=== PATIENT | female | born 1945 | race African-American/Black ===

== ENCOUNTER 2019-02-21 18:49 | Inpatient (IN) | payer MEDICARE, MEDICAID ==
[~2019-02-21] VITALS: Ht 165.1 cm; Wt 111.4 kg
[2019-02-21] MEDS ORDERED: METHYLPREDNISOLONE SOD SUCC 125 MG/2 ML VIAL IV STA (19:16)
[2019-02-21] MEDS ORDERED: ALBUTEROL (0.083%) 2.5MG/3ML NEB HHN STA (19:16)
[2019-02-21] MEDS ORDERED: IPRATROPIUM BROMIDE (0.02%) 0.5MG/2.5ML NEB HHN STA (19:16)
[2019-02-21] MEDS ORDERED: LORAZEPAM 0.5MG TABLET PO ONE (19:30)
[2019-02-21 20:28] LABS: BASOPHILS % 0.4 % (0.0-2.0); EOSINOPHILS % 0.7 % (0.0-5.0); HEMATOCRIT. 26.1 % (36.0-48.0); LYMPHOCYTES % 9.3 % (20.0-50.0); MEAN CORPUSCULAR HEMOGLOBIN 24.8 pg (28.0-32.0); MEAN CORPUSCULAR VOLUME 81.6 fL (81.0-99.0); MONOCYTES % 9.1 % (2.0-8.0); NEUTROPHILS % 80.5 % (40.0-76.0); RED CELL DISTRIBUTION WIDTH 20.3 % (11.6-14.6)
[2019-02-21 20:35] LABS: CHLORIDE 109 mEq/L (98-107)
[2019-02-21] MEDS ORDERED: HYDROCODONE/ACETAMINOPHEN 5/325MG TABLET PO STA (20:53)
[2019-02-21] MEDS ORDERED: ASPIRIN 81MG TABLET PO ONE (21:00)
[2019-02-21] MEDS ORDERED: NITROGLYCERIN 0.4MG TABLET SL SL PRN (21:00)
[2019-02-21] MEDS ORDERED: FUROSEMIDE 40MG/4ML VIAL IV ONE (21:00)
[2019-02-21] MEDS ORDERED: ONDANSETRON HCL 4MG/2ML INJ IV STA (22:26)
[2019-02-21] MEDS ORDERED: MORPHINE SULFATE 4 MG/ML CPJ (NOT FOR IM USE) IV STA (22:26)
[2019-02-21 22:34] LABS: MEAN PLATELET VOLUME 8.6 fl (7.4-10.4); PLATELET 351 x1000/uL (130-400)
[2019-02-21 23:30] VITALS: BP 140/46
[2019-02-22 04:00] VITALS: BP 132/48
[2019-02-22] MEDS ORDERED: DEXTROSE 50% WATER 50ML SYRINGE IV PRN ×2 (05:30)
[2019-02-22] MEDS: BLOOD SUGAR DIAGNOSTIC STRIP TEST SCH ×4 (07:52→21:00)
[2019-02-22 08:00] VITALS: BP 167/68
[2019-02-22] MEDS: INSULIN LISPRO 100 UNITS/ML SUBCUT SCH ×4 (08:22→23:23)
[2019-02-22] MEDS ORDERED: FUROSEMIDE 40MG/4ML VIAL IVP SCH (09:00)
[2019-02-22] MEDS ORDERED: NON FORMULARY PATIENT HOME MED XX SCH ×2 (09:15→09:30)
[2019-02-22] MEDS ORDERED: DOCUSATE SODIUM 250MG CAPSULE PO SCH (09:30)
[2019-02-22] MEDS: IPRATROPIUM/ALBUTEROL 0.5-3(2.5)MG/3ML NEB HHN SCH ×4 (09:54→20:06)
[2019-02-22] MEDS ORDERED: CARVEDILOL 12.5MG TABLET PO SCH ×2 (10:00)
[2019-02-22] MEDS ORDERED: LIDOCAINE HCL/PF 1% 2ML VIAL ONE (10:43)
[2019-02-22] MEDS: FOLIC ACID/VITAMIN B COMP W-C TABLET PO SCH (11:09)
[2019-02-22 11:56] LABS: HEMATOCRIT. 26.3 % (36.0-48.0); HEMOGLOBIN. 7.9 g/dL (12.0-16.0); MEAN CORPUSCULAR HEMOGLOBIN 24.9 pg (28.0-32.0); MEAN CORPUSCULAR VOLUME 82.5 fL (81.0-99.0); MEAN PLATELET VOLUME 8.2 fl (7.4-10.4); PLATELET 302 x1000/uL (130-400); RED BLOOD CELL COUNT 3.18 mill/uL (4.2-5.4); RED CELL DISTRIBUTION WIDTH 20.5 % (11.6-14.6)
[2019-02-22 12:00] VITALS: BP 105/46
[2019-02-22 12:25] LABS: CHLORIDE 106 mEq/L (98-107)
[2019-02-22 12:31] LABS: LDL CHOLESTEROL 48 mg/dL (5-100)
[2019-02-22 12:32] LABS: TOTAL IRON BINDING CAPACITY 371 ug/dL (250-450)
[2019-02-22 12:33] LABS: HDL CHOLESTEROL 52 mg/dL (40-59)
[2019-02-22 12:34] LABS: T4 FREE 1.34 ng/dL (0.76-1.46)
[2019-02-22 12:43] LABS: BG BASE EXCESS -4.3 mmol/L (-2.0-2.0); BG CARBOXYHEMOGLOBIN 1.4 % (0.5-1.5); BG DEOXYHEMOGLOBIN 13.4 % (0.0-5.0); BG FRACTION INSPIRED OXYGEN 32; BG HCO3 ACT 21.6 mmol/L (22.0-26.0); BG METHEMOGLOBIN 0.1 % (0.0-1.5); BG OXYGEN SATURATION 86.4 % (92.0-98.5); BG OXYHEMOGLOBIN 85.1 % (94.0-97.0); BG PCO2 43.2 mmHg (35.0-45.0); BG PH 7.316 (7.350-7.450); BG PO2 56.3 mmHg (75.0-100.0); BG SAMPLE SITE RIGHT BRACHIAL; BG VENT MODE NASAL CANNULA
[2019-02-22] MEDS: FERROUS SULFATE 325MG TABLET PO SCH ×2 (12:50→18:03)
[2019-02-22] MEDS: HYDROCODONE/ACETAMINOPHEN 5/325MG TABLET PO PRN ×2 (12:51→18:04)
[2019-02-22 13:02] LABS: PLATELET ESTIMATE NORMAL
[2019-02-22] MEDS ORDERED: SODIUM POLYSTYRENE SULFONATE 15 G/60 ML BOT PO NR (14:00)
[2019-02-22 16:00] VITALS: BP 117/51
[2019-02-22] MEDS ORDERED: LEVO50TA8 PO (16:24)
[2019-02-22] MEDS ORDERED: AMBR10TA3 PO (16:24)
[2019-02-22] MEDS ORDERED: ATOR40TA70 PO (16:24)
[2019-02-22] MEDS ORDERED: LISI10TA5 PO (16:24)
[2019-02-22] MEDS ORDERED: FERR325T6 PO (16:24)
[2019-02-22] MEDS ORDERED: ALPR0.5T PO (16:24)
[2019-02-22] MEDS ORDERED: LEVO50TA PO (16:24)
[2019-02-22] MEDS ORDERED: SILD20TA PO (16:24)
[2019-02-22] MEDS ORDERED: APIX5TAB PO (16:24)
[2019-02-22] MEDS ORDERED: FURO80TA3 PO (16:24)
[2019-02-22] MEDS: APIXABAN 5 MG TABLET PO SCH (18:03)
[2019-02-22] MEDS: ALPRAZOLAM 0.25 MG TABLET PO PRN (18:55)
[2019-02-22 20:00] VITALS: BP 107/54
[2019-02-22] MEDS: BUDESONIDE 0.5MG/2ML NEB HHN SCH (20:06)
[2019-02-22] MEDS: FUROSEMIDE 40MG TABLET PO SCH (23:21)
[2019-02-22] MEDS: CARVEDILOL 12.5MG TABLET PO SCH (23:22)
[2019-02-22] MEDS: INSULIN GLARGINE UD 100 UNITS/ML SYR SUBCUT SCH (23:23)
[2019-02-23] VITALS (8 sets, daily range): BP systolic 102–146; BP diastolic 46–67
[2019-02-23] MEDS: IPRATROPIUM/ALBUTEROL 0.5-3(2.5)MG/3ML NEB HHN SCH ×6 (00:32→21:02)
[2019-02-23] MEDS: ALPRAZOLAM 0.25 MG TABLET PO PRN (01:42)
[2019-02-23] MEDS: LEVOTHYROXINE SODIUM 50MCG TABLET PO SCH (07:04)
[2019-02-23] MEDS: BLOOD SUGAR DIAGNOSTIC STRIP TEST SCH ×4 (07:04→21:00)
[2019-02-23] MEDS: APIXABAN 5 MG TABLET PO SCH ×2 (07:04→17:24)
[2019-02-23] MEDS: INSULIN LISPRO 100 UNITS/ML SUBCUT SCH ×4 (07:50→21:00)
[2019-02-23 08:13] LABS: BASOPHILS % 0.3 % (0.0-2.0); EOSINOPHILS % 0.1 % (0.0-5.0); LYMPHOCYTES % 13.8 % (20.0-50.0); MEAN CORPUSCULAR HEMOGLOBIN 24.8 pg (28.0-32.0); MEAN CORPUSCULAR VOLUME 81.1 fL (81.0-99.0); MEAN PLATELET VOLUME 8.3 fl (7.4-10.4); MONOCYTES % 10.9 % (2.0-8.0); NEUTROPHILS % 74.9 % (40.0-76.0); PLATELET 276 x1000/uL (130-400)
[2019-02-23] MEDS: FOLIC ACID/VITAMIN B COMP W-C TABLET PO SCH (08:15)
[2019-02-23] MEDS: FUROSEMIDE 40MG TABLET PO SCH ×2 (08:15→22:29)
[2019-02-23] MEDS: CARVEDILOL 12.5MG TABLET PO SCH ×2 (08:16→22:28)
[2019-02-23] MEDS: DOCUSATE SODIUM 250MG CAPSULE PO SCH (08:16)
[2019-02-23] MEDS: FERROUS SULFATE 325MG TABLET PO SCH ×3 (08:16→17:24)
[2019-02-23 08:23] LABS: CHLORIDE 107 mEq/L (98-107)
[2019-02-23 08:27] LABS: HEMOGLOBIN. 6.7 g/dL (12.0-16.0)
[2019-02-23 08:28] LABS: HEMATOCRIT. 21.9 % (36.0-48.0)
[2019-02-23] MEDS: BUDESONIDE 0.5MG/2ML NEB HHN SCH ×2 (08:52→21:02)
[2019-02-23] MEDS: HYDROCODONE/ACETAMINOPHEN 5/325MG TABLET PO PRN ×2 (11:54→19:59)
[2019-02-23] MEDS ORDERED: COLCHICINE 0.6MG TABLET PO SCH (12:45)
[2019-02-23] MEDS ORDERED: ONDANSETRON HCL 4MG/2ML INJ IV PRN (13:00)
[2019-02-23] MEDS ORDERED: ACETYLCYSTEINE 200MG/ML 20% VIAL 4ML PO ONE (13:00)
[2019-02-23] MEDS: ALLOPURINOL 100 MG TABLET PO SCH (13:15)
[2019-02-23] MEDS ORDERED: SODIUM POLYSTYRENE SULFONATE 15 G/60 ML BOT PO NR ×2 (14:30→21:00)
[2019-02-23] MEDS ORDERED: ACETYLCYSTEINE 100MG/ML 10% VIAL 4ML INH SCH (15:30)
[2019-02-23] MEDS: CITRIC ACID/SODIUM CITRATE SOLN 15ML UDC PO SCH (17:24)
[2019-02-23] MEDS ORDERED: GUAIFENESIN 600MG ER TABLET PO SCH (21:00)
[2019-02-23] MEDS ORDERED: ACETYLCYSTEINE 200MG/ML 20% VIAL 4ML PO SCH (21:00)
[2019-02-23] MEDS: GUAIFENESIN 600MG ER TABLET PO SCH (22:29)
[2019-02-23] MEDS: INSULIN GLARGINE UD 100 UNITS/ML SYR SUBCUT SCH (22:36)
[2019-02-23 23:43] LABS: HEMATOCRIT 27.4 % (36.0-48.0); HEMOGLOBIN 8.4 g/dL (12.0-16.0)
[2019-02-23 23:52] LABS: INR 1.1; PROTHROMBIN TIME 11.4 sec (9.6-11.0)
[2019-02-24] MEDS: ALPRAZOLAM 0.25 MG TABLET PO PRN (00:37)
[2019-02-24] MEDS: ACETYLCYSTEINE 100MG/ML 10% VIAL 4ML INH SCH ×2 (01:07→09:23)
[2019-02-24] MEDS: IPRATROPIUM/ALBUTEROL 0.5-3(2.5)MG/3ML NEB HHN SCH ×5 (01:16→21:48)
[2019-02-24] MEDS: LEVOTHYROXINE SODIUM 50MCG TABLET PO SCH (05:23)
[2019-02-24] MEDS: APIXABAN 5 MG TABLET PO SCH ×2 (05:23→17:27)
[2019-02-24] MEDS: BLOOD SUGAR DIAGNOSTIC STRIP TEST SCH ×4 (05:23→21:43)
[2019-02-24] MEDS: INSULIN LISPRO 100 UNITS/ML SUBCUT SCH ×4 (07:50→21:00)
[2019-02-24 08:00] VITALS: BP 125/47
[2019-02-24] MEDS: GUAIFENESIN 600MG ER TABLET PO SCH ×2 (09:01→21:34)
[2019-02-24] MEDS: FOLIC ACID/VITAMIN B COMP W-C TABLET PO SCH (09:01)
[2019-02-24] MEDS: FERROUS SULFATE 325MG TABLET PO SCH ×3 (09:01→17:27)
[2019-02-24] MEDS: CITRIC ACID/SODIUM CITRATE SOLN 15ML UDC PO SCH ×3 (09:01→17:27)
[2019-02-24] MEDS: DOCUSATE SODIUM 250MG CAPSULE PO SCH (09:01)
[2019-02-24] MEDS: ALLOPURINOL 100 MG TABLET PO SCH (09:02)
[2019-02-24] MEDS: COLCHICINE 0.6MG TABLET PO SCH (09:02)
[2019-02-24] MEDS: CARVEDILOL 12.5MG TABLET PO SCH ×2 (09:02→21:00)
[2019-02-24] MEDS: BUDESONIDE 0.5MG/2ML NEB HHN SCH ×2 (09:20→21:48)
[2019-02-24] MEDS: SODIUM CHLORIDE 0.45% 1,000 ML IV SCH (09:26)
[2019-02-24 12:00] VITALS: BP 113/40
[2019-02-24 16:00] VITALS: BP 146/56
[2019-02-24] MEDS: HYDROCODONE/ACETAMINOPHEN 5/325MG TABLET PO PRN (17:27)
[2019-02-24 17:55] LABS: BASOPHILS % 0.5 % (0.0-2.0); EOSINOPHILS % 1.6 % (0.0-5.0); HEMATOCRIT. 26.1 % (36.0-48.0); HEMOGLOBIN. 7.9 g/dL (12.0-16.0); LYMPHOCYTES % 11.4 % (20.0-50.0); MEAN CORPUSCULAR HEMOGLOBIN 25.3 pg (28.0-32.0); MEAN CORPUSCULAR VOLUME 83.1 fL (81.0-99.0); MEAN PLATELET VOLUME 7.9 fl (7.4-10.4); MONOCYTES % 10.2 % (2.0-8.0); NEUTROPHILS % 76.3 % (40.0-76.0); PLATELET 287 x1000/uL (130-400); RED BLOOD CELL COUNT 3.14 mill/uL (4.2-5.4)
[2019-02-24 20:00] VITALS: BP 129/57
[2019-02-24] MEDS: EPOETIN ALFA 10000UNITS/ML VIAL SUBCUT SCH (21:34)
[2019-02-24] MEDS: INSULIN GLARGINE UD 100 UNITS/ML SYR SUBCUT SCH (21:42)
[2019-02-25] VITALS (8 sets, daily range): BP systolic 121–143; BP diastolic 49–62
[2019-02-25] MEDS: ALPRAZOLAM 0.25 MG TABLET PO PRN ×3 (00:09→23:54)
[2019-02-25] MEDS: IPRATROPIUM/ALBUTEROL 0.5-3(2.5)MG/3ML NEB HHN SCH ×7 (01:27→23:43)
[2019-02-25] MEDS: ACETYLCYSTEINE 100MG/ML 10% VIAL 4ML INH SCH ×3 (01:28→23:42)
[2019-02-25] MEDS: SODIUM CHLORIDE 0.45% 1,000 ML IV SCH (03:03)
[2019-02-25] MEDS: LEVOTHYROXINE SODIUM 50MCG TABLET PO SCH (05:53)
[2019-02-25] MEDS: APIXABAN 5 MG TABLET PO SCH ×2 (05:53→18:46)
[2019-02-25] MEDS: BLOOD SUGAR DIAGNOSTIC STRIP TEST SCH ×4 (07:01→21:00)
[2019-02-25] MEDS: FERROUS SULFATE 325MG TABLET PO SCH ×3 (07:50→18:46)
[2019-02-25] MEDS: INSULIN LISPRO 100 UNITS/ML SUBCUT SCH ×4 (07:50→21:00)
[2019-02-25] MEDS: BUDESONIDE 0.5MG/2ML NEB HHN SCH ×2 (08:57→20:33)
[2019-02-25] MEDS: COLCHICINE 0.6MG TABLET PO SCH ×2 (09:00→14:08)
[2019-02-25] MEDS: CITALOPRAM HYDROBROMIDE 10MG TABLET PO SCH ×2 (09:00→14:18)
[2019-02-25] MEDS: CITRIC ACID/SODIUM CITRATE SOLN 15ML UDC PO SCH ×3 (09:00→18:50)
[2019-02-25] MEDS: GUAIFENESIN 600MG ER TABLET PO SCH ×2 (11:40→21:58)
[2019-02-25] MEDS: CARVEDILOL 12.5MG TABLET PO SCH ×2 (11:41→21:58)
[2019-02-25] MEDS: HYDROCODONE/ACETAMINOPHEN 5/325MG TABLET PO PRN ×2 (11:42→21:59)
[2019-02-25 12:28] LABS: BASOPHILS % 0.3 % (0.0-2.0); EOSINOPHILS % 1.9 % (0.0-5.0); HEMATOCRIT. 24.2 % (36.0-48.0); HEMOGLOBIN. 7.6 g/dL (12.0-16.0); MEAN CORPUSCULAR HEMOGLOBIN 25.7 pg (28.0-32.0); MEAN CORPUSCULAR VOLUME 81.7 fL (81.0-99.0); MEAN PLATELET VOLUME 7.8 fl (7.4-10.4); MONOCYTES % 10.9 % (2.0-8.0); NEUTROPHILS % 74.9 % (40.0-76.0); PLATELET 286 x1000/uL (130-400); RED BLOOD CELL COUNT 2.96 mill/uL (4.2-5.4); RED CELL DISTRIBUTION WIDTH 19.9 % (11.6-14.6)
[2019-02-25] MEDS: FOLIC ACID/VITAMIN B COMP W-C TABLET PO SCH (14:09)
[2019-02-25] MEDS: ALLOPURINOL 100 MG TABLET PO SCH (14:09)
[2019-02-25] MEDS: DOCUSATE SODIUM 250MG CAPSULE PO SCH (14:12)
[2019-02-25] MEDS: LIDOCAINE 5% PATCH TOP SCH (16:44)
[2019-02-25] MEDS ORDERED: FUROSEMIDE 40MG/4ML VIAL IVP NR (18:12)
[2019-02-25] MEDS: INSULIN GLARGINE UD 100 UNITS/ML SYR SUBCUT SCH (22:34)
[2019-02-26] VITALS (7 sets, daily range): BP systolic 106–151; BP diastolic 44–67
[2019-02-26] MEDS: SODIUM CHLORIDE 0.45% 1,000 ML IV SCH (01:19)
[2019-02-26] MEDS: IPRATROPIUM/ALBUTEROL 0.5-3(2.5)MG/3ML NEB HHN SCH ×5 (04:11→20:52)
[2019-02-26] MEDS: APIXABAN 5 MG TABLET PO SCH ×2 (06:46→18:03)
[2019-02-26] MEDS: BLOOD SUGAR DIAGNOSTIC STRIP TEST SCH ×4 (07:20→21:00)
[2019-02-26] MEDS: INSULIN LISPRO 100 UNITS/ML SUBCUT SCH ×4 (07:50→21:00)
[2019-02-26] MEDS: GUAIFENESIN 600MG ER TABLET PO SCH ×2 (09:25→22:39)
[2019-02-26] MEDS: FERROUS SULFATE 325MG TABLET PO SCH ×3 (09:25→18:03)
[2019-02-26] MEDS: CARVEDILOL 12.5MG TABLET PO SCH ×2 (09:25→22:42)
[2019-02-26] MEDS: FOLIC ACID/VITAMIN B COMP W-C TABLET PO SCH (09:25)
[2019-02-26] MEDS: LEVOTHYROXINE SODIUM 50MCG TABLET PO SCH (09:25)
[2019-02-26] MEDS: ALLOPURINOL 100 MG TABLET PO SCH (09:26)
[2019-02-26] MEDS: LIDOCAINE 5% PATCH TOP SCH (09:27)
[2019-02-26] MEDS: DOCUSATE SODIUM 250MG CAPSULE PO SCH (09:33)
[2019-02-26] MEDS: CITALOPRAM HYDROBROMIDE 10MG TABLET PO SCH (09:34)
[2019-02-26] MEDS: COLCHICINE 0.6MG TABLET PO SCH (09:34)
[2019-02-26 10:28] LABS: BASOPHILS % 0.3 % (0.0-2.0); EOSINOPHILS % 2.4 % (0.0-5.0); HEMATOCRIT. 25.2 % (36.0-48.0); HEMOGLOBIN. 7.7 g/dL (12.0-16.0); LYMPHOCYTES % 13.6 % (20.0-50.0); MEAN CORPUSCULAR HEMOGLOBIN 25.2 pg (28.0-32.0); MEAN CORPUSCULAR VOLUME 82.1 fL (81.0-99.0); MEAN PLATELET VOLUME 8.1 fl (7.4-10.4); MONOCYTES % 10.2 % (2.0-8.0); NEUTROPHILS % 73.5 % (40.0-76.0); PLATELET 292 x1000/uL (130-400); RED BLOOD CELL COUNT 3.07 mill/uL (4.2-5.4)
[2019-02-26 10:40] LABS: CHLORIDE 109 mEq/L (98-107)
[2019-02-26] MEDS: ALPRAZOLAM 0.25 MG TABLET PO PRN (13:56)
[2019-02-26] MEDS: FUROSEMIDE 40MG/4ML VIAL IVP SCH (16:09)
[2019-02-26] MEDS: BUDESONIDE 0.5MG/2ML NEB HHN SCH (20:53)
[2019-02-26] MEDS: EPOETIN ALFA 10000UNITS/ML VIAL SUBCUT SCH (22:39)
[2019-02-26] MEDS: [UNRECOGNIZED DRUG - REMARK] PO SCH (22:39)
[2019-02-26] MEDS: HYDROCODONE/ACETAMINOPHEN 5/325MG TABLET PO PRN (22:49)
[2019-02-26] MEDS: INSULIN GLARGINE UD 100 UNITS/ML SYR SUBCUT SCH (22:58)
[2019-02-27] VITALS (11 sets, daily range): BP systolic 101–152; BP diastolic 31–87
[2019-02-27] MEDS: IPRATROPIUM/ALBUTEROL 0.5-3(2.5)MG/3ML NEB HHN SCH ×6 (00:37→21:03)
[2019-02-27] MEDS: ACETYLCYSTEINE 100MG/ML 10% VIAL 4ML INH SCH ×2 (00:39→09:52)
[2019-02-27] MEDS: ALPRAZOLAM 0.25 MG TABLET PO PRN ×2 (00:47→21:31)
[2019-02-27] MEDS: LEVOTHYROXINE SODIUM 50MCG TABLET PO SCH (06:10)
[2019-02-27] MEDS: APIXABAN 5 MG TABLET PO SCH (06:10)
[2019-02-27 07:16] LABS: BASOPHILS % 0.3 % (0.0-2.0); EOSINOPHILS % 2.2 % (0.0-5.0); HEMATOCRIT. 23.4 % (36.0-48.0); HEMOGLOBIN. 7.3 g/dL (12.0-16.0); LYMPHOCYTES % 17.8 % (20.0-50.0); MEAN CORPUSCULAR HEMOGLOBIN 25.4 pg (28.0-32.0); MEAN CORPUSCULAR VOLUME 81.7 fL (81.0-99.0); MEAN PLATELET VOLUME 8.3 fl (7.4-10.4); MONOCYTES % 12.4 % (2.0-8.0); NEUTROPHILS % 67.3 % (40.0-76.0); PLATELET 266 x1000/uL (130-400); RED BLOOD CELL COUNT 2.86 mill/uL (4.2-5.4); RED CELL DISTRIBUTION WIDTH 20.3 % (11.6-14.6)
[2019-02-27] MEDS: INSULIN LISPRO 100 UNITS/ML SUBCUT SCH ×4 (07:50→21:00)
[2019-02-27] MEDS: FUROSEMIDE 40MG/4ML VIAL IVP SCH (08:10)
[2019-02-27] MEDS: COLCHICINE 0.6MG TABLET PO SCH (08:10)
[2019-02-27] MEDS: FOLIC ACID/VITAMIN B COMP W-C TABLET PO SCH (08:10)
[2019-02-27] MEDS: ALLOPURINOL 100 MG TABLET PO SCH (08:10)
[2019-02-27] MEDS: FERROUS SULFATE 325MG TABLET PO SCH ×3 (08:10→18:48)
[2019-02-27] MEDS: CITALOPRAM HYDROBROMIDE 10MG TABLET PO SCH (08:10)
[2019-02-27] MEDS: GUAIFENESIN 600MG ER TABLET PO SCH ×2 (08:10→21:33)
[2019-02-27] MEDS: BLOOD SUGAR DIAGNOSTIC STRIP TEST SCH ×4 (08:11→21:38)
[2019-02-27] MEDS: CARVEDILOL 12.5MG TABLET PO SCH ×2 (08:11→21:33)
[2019-02-27] MEDS: DOCUSATE SODIUM 250MG CAPSULE PO SCH (08:11)
[2019-02-27] MEDS: [UNRECOGNIZED DRUG - REMARK] PO SCH (08:12)
[2019-02-27] MEDS: LIDOCAINE 5% PATCH TOP SCH (08:12)
[2019-02-27] MEDS: BUDESONIDE 0.5MG/2ML NEB HHN SCH (09:51)
[2019-02-27] MEDS ORDERED: LACTULOSE 20G/30ML UDC PO SCH ×2 (10:45→18:00)
[2019-02-27] MEDS ORDERED: LACTULOSE 20G/30ML UDC PO PRN (10:45)
[2019-02-27 21:14] LABS: HEMATOCRIT 27.6 % (36.0-48.0); HEMOGLOBIN 8.6 g/dL (12.0-16.0)
[2019-02-27 21:21] LABS: INR 1.1; PROTHROMBIN TIME 11.4 sec (9.6-11.0)
[2019-02-27] MEDS: INSULIN GLARGINE UD 100 UNITS/ML SYR SUBCUT SCH (21:35)
[2019-02-28] VITALS: BP 127/45
[2019-02-28] MEDS: IPRATROPIUM/ALBUTEROL 0.5-3(2.5)MG/3ML NEB HHN SCH ×6 (00:13→20:38)
[2019-02-28] MEDS: ACETYLCYSTEINE 100MG/ML 10% VIAL 4ML INH SCH ×3 (00:13→20:37)
[2019-02-28 04:00] VITALS: BP 124/51
[2019-02-28] MEDS: LEVOTHYROXINE SODIUM 50MCG TABLET PO SCH (06:14)
[2019-02-28] MEDS: BLOOD SUGAR DIAGNOSTIC STRIP TEST SCH ×4 (06:14→21:29)
[2019-02-28 06:48] LABS: BASOPHILS % 0.6 % (0.0-2.0); EOSINOPHILS % 1.4 % (0.0-5.0); HEMATOCRIT. 25.5 % (36.0-48.0); HEMOGLOBIN. 8.1 g/dL (12.0-16.0); LYMPHOCYTES % 11.8 % (20.0-50.0); MEAN CORPUSCULAR HEMOGLOBIN 25.9 pg (28.0-32.0); MEAN PLATELET VOLUME 8.1 fl (7.4-10.4); MONOCYTES % 11.4 % (2.0-8.0); NEUTROPHILS % 74.8 % (40.0-76.0); PLATELET 239 x1000/uL (130-400); RED BLOOD CELL COUNT 3.12 mill/uL (4.2-5.4); RED CELL DISTRIBUTION WIDTH 19.3 % (11.6-14.6)
[2019-02-28] MEDS: INSULIN LISPRO 100 UNITS/ML SUBCUT SCH ×4 (07:50→21:47)
[2019-02-28 08:00] VITALS: BP 148/52
[2019-02-28 08:16] LABS: CHLORIDE 109 mEq/L (98-107)
[2019-02-28 08:25] LABS: AMYLASE 22 IU/L (25-115)
[2019-02-28] MEDS ORDERED: FUROSEMIDE 20MG/2ML VIAL IVP SCH (09:18)
[2019-02-28] MEDS: DOCUSATE SODIUM 250MG CAPSULE PO SCH (09:56)
[2019-02-28] MEDS: ALLOPURINOL 100 MG TABLET PO SCH (09:56)
[2019-02-28] MEDS: CITALOPRAM HYDROBROMIDE 10MG TABLET PO SCH (09:57)
[2019-02-28] MEDS: FERROUS SULFATE 325MG TABLET PO SCH ×3 (09:57→17:33)
[2019-02-28] MEDS: FOLIC ACID/VITAMIN B COMP W-C TABLET PO SCH (09:57)
[2019-02-28] MEDS: COLCHICINE 0.6MG TABLET PO SCH (09:57)
[2019-02-28] MEDS: [UNRECOGNIZED DRUG - REMARK] PO SCH (09:57)
[2019-02-28] MEDS: GUAIFENESIN 600MG ER TABLET PO SCH ×2 (10:07→21:02)
[2019-02-28] MEDS: CARVEDILOL 12.5MG TABLET PO SCH ×2 (10:07→21:09)
[2019-02-28] MEDS: LIDOCAINE 5% PATCH TOP SCH (11:51)
[2019-02-28 12:00] VITALS: BP 143/51
[2019-02-28] MEDS: ALPRAZOLAM 0.25 MG TABLET PO PRN ×2 (12:31→21:09)
[2019-02-28 16:00] VITALS: BP 142/55
[2019-02-28 20:00] VITALS: BP 152/59
[2019-02-28] MEDS: INSULIN GLARGINE UD 100 UNITS/ML SYR SUBCUT SCH (21:46)
[2019-03-01] VITALS (10 sets, daily range): BP systolic 102–153; BP diastolic 39–95
[2019-03-01] MEDS: IPRATROPIUM/ALBUTEROL 0.5-3(2.5)MG/3ML NEB HHN SCH ×6 (01:27→20:39)
[2019-03-01] MEDS: LEVOTHYROXINE SODIUM 50MCG TABLET PO SCH (06:18)
[2019-03-01] MEDS: BLOOD SUGAR DIAGNOSTIC STRIP TEST SCH ×4 (06:18→21:00)
[2019-03-01] MEDS: ALPRAZOLAM 0.25 MG TABLET PO PRN ×3 (06:39→23:52)
[2019-03-01 07:02] LABS: BASOPHILS % 0.2 % (0.0-2.0); EOSINOPHILS % 1.4 % (0.0-5.0); HEMATOCRIT. 24.9 % (36.0-48.0); HEMOGLOBIN. 7.9 g/dL (12.0-16.0); LYMPHOCYTES % 12.4 % (20.0-50.0); MEAN CORPUSCULAR HEMOGLOBIN 25.9 pg (28.0-32.0); MEAN CORPUSCULAR VOLUME 82.1 fL (81.0-99.0); MEAN PLATELET VOLUME 8.2 fl (7.4-10.4); MONOCYTES % 12.7 % (2.0-8.0); NEUTROPHILS % 73.3 % (40.0-76.0); PLATELET 232 x1000/uL (130-400); RED BLOOD CELL COUNT 3.04 mill/uL (4.2-5.4); RED CELL DISTRIBUTION WIDTH 19.8 % (11.6-14.6)
[2019-03-01 07:17] LABS: CHLORIDE 107 mEq/L (98-107)
[2019-03-01] MEDS: INSULIN LISPRO 100 UNITS/ML SUBCUT SCH ×4 (07:50→21:00)
[2019-03-01] MEDS: CITALOPRAM HYDROBROMIDE 10MG TABLET PO SCH (09:30)
[2019-03-01] MEDS: FOLIC ACID/VITAMIN B COMP W-C TABLET PO SCH (09:30)
[2019-03-01] MEDS: FERROUS SULFATE 325MG TABLET PO SCH ×3 (09:30→18:21)
[2019-03-01] MEDS: ALLOPURINOL 100 MG TABLET PO SCH (09:31)
[2019-03-01] MEDS: GUAIFENESIN 600MG ER TABLET PO SCH ×2 (09:31→22:37)
[2019-03-01] MEDS: COLCHICINE 0.6MG TABLET PO SCH (09:31)
[2019-03-01] MEDS: DOCUSATE SODIUM 250MG CAPSULE PO SCH (09:32)
[2019-03-01] MEDS: [UNRECOGNIZED DRUG - REMARK] PO SCH (09:32)
[2019-03-01] MEDS: FUROSEMIDE 40MG/4ML VIAL IVP SCH (09:32)
[2019-03-01] MEDS: CARVEDILOL 12.5MG TABLET PO SCH ×2 (09:34→21:00)
[2019-03-01] MEDS: LIDOCAINE 5% PATCH TOP SCH (09:36)
[2019-03-01] MEDS ORDERED: HYDROCODONE/ACETAMINOPHEN 5/325MG TABLET PO PRN (11:15)
[2019-03-01] MEDS: HYDROCODONE/ACETAMINOPHEN 5/325MG TABLET PO PRN (12:27)
[2019-03-01] MEDS ORDERED: FLUT1DIS3 INH (16:33)
[2019-03-01] MEDS ORDERED: SPIR25TA6 PO (16:33)
[2019-03-01] MEDS ORDERED: ALBU18HF2 IH (16:33)
[2019-03-01] MEDS ORDERED: INSU100I24 SQ (16:33)
[2019-03-01] MEDS ORDERED: COR6 PO (16:33)
[2019-03-01] MEDS ORDERED: IPRA3AMP9 NEB (16:33)
[2019-03-01] MEDS ORDERED: COLC0.6C3 PO (16:34)
[2019-03-01] MEDS ORDERED: LISI-604 PO (16:35)
[2019-03-01] MEDS ORDERED: ATOR20TA PO (16:35)
[2019-03-01] MEDS ORDERED: FURO40TA5 PO (16:35)
[2019-03-01] MEDS ORDERED: APIX2.5T PO (16:35)
[2019-03-01] MEDS: EPOETIN ALFA 10000UNITS/ML VIAL SUBCUT SCH (22:37)
[2019-03-01] MEDS: INSULIN GLARGINE UD 100 UNITS/ML SYR SUBCUT SCH (22:39)
[2019-03-02] VITALS (8 sets, daily range): BP systolic 124–141; BP diastolic 42–75
[2019-03-02] MEDS: IPRATROPIUM/ALBUTEROL 0.5-3(2.5)MG/3ML NEB HHN SCH ×6 (00:12→21:37)
[2019-03-02 03:35] LABS: BASOPHILS % 0.7 % (0.0-2.0); EOSINOPHILS % 1.5 % (0.0-5.0); HEMOGLOBIN. 8.8 g/dL (12.0-16.0); LYMPHOCYTES % 9.9 % (20.0-50.0); MEAN CORPUSCULAR VOLUME 82.4 fL (81.0-99.0); MEAN PLATELET VOLUME 8.1 fl (7.4-10.4); MONOCYTES % 11.7 % (2.0-8.0); NEUTROPHILS % 76.2 % (40.0-76.0); PLATELET 230 x1000/uL (130-400); RED CELL DISTRIBUTION WIDTH 19.4 % (11.6-14.6)
[2019-03-02 03:41] LABS: CHLORIDE 106 mEq/L (98-107)
[2019-03-02 03:48] LABS: INR 1.1
[2019-03-02] MEDS: BLOOD SUGAR DIAGNOSTIC STRIP TEST SCH ×3 (06:20→18:03)
[2019-03-02] MEDS: LEVOTHYROXINE SODIUM 50MCG TABLET PO SCH (06:20)
[2019-03-02] MEDS: HYDROCODONE/ACETAMINOPHEN 5/325MG TABLET PO PRN (06:28)
[2019-03-02] MEDS: INSULIN LISPRO 100 UNITS/ML SUBCUT SCH ×3 (07:50→17:50)
[2019-03-02] MEDS: FOLIC ACID/VITAMIN B COMP W-C TABLET PO SCH (10:23)
[2019-03-02] MEDS: ALLOPURINOL 100 MG TABLET PO SCH (10:24)
[2019-03-02] MEDS: [UNRECOGNIZED DRUG - REMARK] PO SCH (10:24)
[2019-03-02] MEDS: FERROUS SULFATE 325MG TABLET PO SCH ×3 (10:25→18:10)
[2019-03-02] MEDS: FUROSEMIDE 40MG/4ML VIAL IVP SCH (10:25)
[2019-03-02] MEDS: CARVEDILOL 12.5MG TABLET PO SCH (10:25)
[2019-03-02] MEDS: GUAIFENESIN 600MG ER TABLET PO SCH (10:25)
[2019-03-02] MEDS: ALPRAZOLAM 0.25 MG TABLET PO PRN ×2 (10:38→18:03)
[2019-03-02] MEDS: COLCHICINE 0.6MG TABLET PO SCH (10:38)
[2019-03-02] MEDS: LIDOCAINE 5% PATCH TOP SCH (10:40)
[2019-03-02] MEDS: DOCUSATE SODIUM 250MG CAPSULE PO SCH (14:24)
[2019-03-02] MEDS: CITALOPRAM HYDROBROMIDE 10MG TABLET PO SCH (14:25)
[2019-03-02] MEDS ORDERED: EPOE10005 IJ (15:28)
[2019-03-02] MEDS ORDERED: CITA20TA19 PO (15:30)
[2019-03-02] MEDS ORDERED: SILDENAFIL CITRATE 20MG TABLET PO SCH (22:00)
== END 2019-03-02 22:00 | disposition home or self-care (01) | DRG 291 ==
LOC: ER 20:32 → 6WST 21:47 → EDBEDREQTM 22:00 → EDBEDREQ 22:00 → ENRESERV 22:33
PROVIDERS: ADMIT Internal Medicine Geriatric Medicine; ATTEND Internal Medicine Geriatric Medicine
PROC: 30233N1 Transfusion of Nonautologous Red Blood Cells into Peripheral Vein, Percutaneous Approach (ICD-10-PCS; principal; 2019-02-23)
PROC: 02HV33Z Insertion of Infusion Device into Superior Vena Cava, Percutaneous Approach (ICD-10-PCS; 2019-02-25)
PROC: B548ZZA Ultrasonography of Superior Vena Cava, Guidance (ICD-10-PCS; 2019-02-25)
PROC: 5A09457 Assistance with Respiratory Ventilation, 24-96 Consecutive Hours, Continuous Positive Airway Pressure (ICD-10-PCS; 2019-02-25)
PROC: 5A09557 Assistance with Respiratory Ventilation, Greater than 96 Consecutive Hours, Continuous Positive Airway Pressure (ICD-10-PCS; 2019-02-26)
DX: I13.0 Hypertensive heart and chronic kidney disease with heart failure and stage 1 through stage 4 chronic kidney disease, or unspecified chronic kidney disease (principal); J96.21 Acute and chronic respiratory failure with hypoxia; I50.43 Acute on chronic combined systolic (congestive) and diastolic (congestive) heart failure; J44.0 Chronic obstructive pulmonary disease with (acute) lower respiratory infection; S32.010A Wedge compression fracture of first lumbar vertebra, initial encounter for closed fracture; E87.2 Acidosis; N17.9 Acute kidney failure, unspecified; J44.1 Chronic obstructive pulmonary disease with (acute) exacerbation; D50.9 Iron deficiency anemia, unspecified; E03.9 Hypothyroidism, unspecified; E05.90 Thyrotoxicosis, unspecified without thyrotoxic crisis or storm; E11.51 Type 2 diabetes mellitus with diabetic peripheral angiopathy without gangrene; E66.01 Morbid (severe) obesity due to excess calories; E87.5 Hyperkalemia; F41.1 Generalized anxiety disorder; G47.33 Obstructive sleep apnea (adult) (pediatric); N18.9 Chronic kidney disease, unspecified; M19.90 Unspecified osteoarthritis, unspecified site; M10.9 Gout, unspecified; K63.5 Polyp of colon; I87.2 Venous insufficiency (chronic) (peripheral); K44.9 Diaphragmatic hernia without obstruction or gangrene; J20.9 Acute bronchitis, unspecified; E78.00 Pure hypercholesterolemia, unspecified; I48.0 Paroxysmal atrial fibrillation; I25.10 Atherosclerotic heart disease of native coronary artery without angina pectoris; I27.20 Pulmonary hypertension, unspecified; E11.22 Type 2 diabetes mellitus with diabetic chronic kidney disease; D63.8 Anemia in other chronic diseases classified elsewhere; M17.11 Unilateral primary osteoarthritis, right knee; K57.90 Diverticulosis of intestine, part unspecified, without perforation or abscess without bleeding; F32.9 Major depressive disorder, single episode, unspecified; K31.7 Polyp of stomach and duodenum; Z87.440 Personal history of urinary (tract) infections; Z68.36 Body mass index [BMI] 36.0-36.9, adult; Z99.81 Dependence on supplemental oxygen; Z79.899 Other long term (current) drug therapy; Z87.891 Personal history of nicotine dependence; Z87.19 Personal history of other diseases of the digestive system; Z86.010 Personal history of colon polyps; Z83.3 Family history of diabetes mellitus; Z82.49 Family history of ischemic heart disease and other diseases of the circulatory system; Z79.890 Hormone replacement therapy; Z79.51 Long term (current) use of inhaled steroids; Z79.01 Long term (current) use of anticoagulants; Z56.0 Unemployment, unspecified
CPT/HCPCS: 36415; 36600; 71045; 73562; 74176; 76937; 80048; 80061; 82150; 82270; 82375; 82805; 82962; 83036; 83540; 83550; 83880; 84439; 84443; 84484; 84550; 85014; 85018; 85049; 85384; 86850; 86900; 86920; 93005; 93306; 94640; 94660; 97162; 97166; 99291; C1725; C1893; J0885; J1815; J1940; J2270; J2405; J2930; J3490; J7040; J7608; J7611; J7620; J7626; P9016

== ENCOUNTER 2019-03-04 20:14 | Inpatient (IN) | payer MEDICARE, MEDICAID ==
[~2019-03-04] VITALS: Ht 165.1 cm; Wt 100.7 kg
[~2019-03-04 20:14] MED LIST: ALBU18HF2 IH; ALPR0.5T PO; APIX2.5T PO; ATOR20TA PO; CITA20TA19 PO; COLC0.6C3 PO; COR6 PO; EPOE10005 IJ; FERR325T6 PO; FLUT1DIS3 INH; FURO40TA5 PO; INSU100I24 SQ; IPRA3AMP9 NEB; LEVO50TA8 PO; LIDOCAINE HCL/PF 1% 2ML VIAL ONE; LISI-604 PO; SILD20TA PO; SPIR25TA6 PO
[2019-03-04] MEDS ORDERED: IPRATROPIUM BROMIDE (0.02%) 0.5MG/2.5ML NEB HHN STA (20:18)
[2019-03-04] MEDS ORDERED: ALBUTEROL (0.083%) 2.5MG/3ML NEB HHN STA (20:18)
[2019-03-04] MEDS ORDERED: FUROSEMIDE 40MG/4ML VIAL IV ONE (20:30)
[2019-03-04 20:42] LABS: BASOPHILS % 0.4 % (0.0-2.0); EOSINOPHILS % 0.9 % (0.0-5.0); HEMATOCRIT. 28.4 % (36.0-48.0); HEMOGLOBIN. 8.9 g/dL (12.0-16.0); LYMPHOCYTES % 9.2 % (20.0-50.0); MEAN CORPUSCULAR VOLUME 83.1 fL (81.0-99.0); MEAN PLATELET VOLUME 8.2 fl (7.4-10.4); MONOCYTES % 9.4 % (2.0-8.0); NEUTROPHILS % 80.1 % (40.0-76.0); PLATELET 228 x1000/uL (130-400); RED BLOOD CELL COUNT 3.42 mill/uL (4.2-5.4); RED CELL DISTRIBUTION WIDTH 19.6 % (11.6-14.6)
[2019-03-04 20:50] LABS: CHLORIDE 106 mEq/L (98-107)
[2019-03-04] MEDS ORDERED: HYDROCODONE/ACETAMINOPHEN 5/325MG TABLET PO ONE (21:30)
[2019-03-04 22:00] LABS: BG BASE EXCESS 0.4 mmol/L (-2.0-2.0); BG BILEVEL POS AIRWAY PRESSURE 15/5; BG CARBOXYHEMOGLOBIN 1.4 % (0.5-1.5); BG DEOXYHEMOGLOBIN 5.9 % (0.0-5.0); BG FRACTION INSPIRED OXYGEN 40; BG HCO3 ACT 25.8 mmol/L (22.0-26.0); BG METHEMOGLOBIN 0.2 % (0.0-1.5); BG OXYHEMOGLOBIN 92.5 % (94.0-97.0); BG PCO2 44.9 mmHg (35.0-45.0); BG PH 7.377 (7.350-7.450); BG PO2 73.2 mmHg (75.0-100.0); BG SAMPLE SITE LEFT RADIAL; BG TOTAL HEMOGLOBIN 9.2 g/dL (12.0-18.0); BG VENT MODE MASK - BIPAP; BG VENT RATE 18 set
[2019-03-04] MEDS ORDERED: NA PHOS,M-B/NA PHOS,DI-BA ENEMA 118ML PR PRN (23:00)
[2019-03-04] MEDS ORDERED: MAGNESIUM/ALUMINUM HYDROXIDE/SIMETHICONE 30ML UDC PO PRN (23:00)
[2019-03-04] MEDS ORDERED: ACETAMINOPHEN 325MG TABLET PO PRN (23:00)
[2019-03-04] MEDS ORDERED: CLONIDINE 0.1MG TABLET PO PRN (23:00)
[2019-03-04] MEDS ORDERED: DIPHENHYDRAMINE 50MG/ML VIAL IV PRN (23:00)
[2019-03-04] MEDS ORDERED: GUAIFENESIN 200MG/10ML SUGAR FREE UDC PO PRN (23:00)
[2019-03-04] MEDS ORDERED: IPRATROPIUM/ALBUTEROL 0.5-3(2.5)MG/3ML NEB HHN PRN (23:00)
[2019-03-04] MEDS ORDERED: ACETAMINOPHEN 650MG SUPP PR PRN (23:00)
[2019-03-04] MEDS ORDERED: ONDANSETRON HCL 4MG/2ML INJ IV PRN (23:00)
[2019-03-04] MEDS ORDERED: KETOROLAC 30MG/ML VIAL IV SCH (23:15)
[2019-03-04 23:49] VITALS: BP 114/59
[2019-03-05] VITALS (11 sets, daily range): BP systolic 92–128; BP diastolic 45–64
[2019-03-05] MEDS ORDERED: AMBR10TA3 MT (02:30)
[2019-03-05] MEDS: IPRATROPIUM/ALBUTEROL 0.5-3(2.5)MG/3ML NEB HHN SCH ×3 (04:33→13:33)
[2019-03-05] MEDS: SODIUM CHLORIDE 0.9% INJ 3ML FLUSH IVF SCH ×3 (06:07→21:21)
[2019-03-05 06:51] LABS: BASOPHILS % 0.5 % (0.0-2.0); EOSINOPHILS % 1.6 % (0.0-5.0); HEMATOCRIT. 26.2 % (36.0-48.0); HEMOGLOBIN. 8.4 g/dL (12.0-16.0); MEAN CORPUSCULAR HEMOGLOBIN 26.4 pg (28.0-32.0); MEAN CORPUSCULAR VOLUME 82.3 fL (81.0-99.0); MEAN PLATELET VOLUME 8.6 fl (7.4-10.4); MONOCYTES % 13.4 % (2.0-8.0); NEUTROPHILS % 72.5 % (40.0-76.0); PLATELET 215 x1000/uL (130-400); RED BLOOD CELL COUNT 3.18 mill/uL (4.2-5.4); RED CELL DISTRIBUTION WIDTH 19.7 % (11.6-14.6)
[2019-03-05] MEDS ORDERED: DEXTROSE 50% WATER 50ML SYRINGE IV PRN (08:30)
[2019-03-05 08:31] LABS: CHLORIDE 106 mEq/L (98-107)
[2019-03-05 08:39] LABS: CREATINE KINASE 21 IU/L (26-192)
[2019-03-05 08:42] LABS: CREATINE KINASE MB FRACTION < 1.0 ng/mL (0.5-3.6)
[2019-03-05] MEDS ORDERED: ENOXAPARIN 30MG/0.3ML SYR SUBCUT SCH (09:00)
[2019-03-05] MEDS ORDERED: FUROSEMIDE 40MG/4ML VIAL IV SCH (09:00)
[2019-03-05] MEDS ORDERED: ENOXAPARIN 40MG/0.4ML SYR SUBCUT SCH (09:00)
[2019-03-05] MEDS: BLOOD SUGAR DIAGNOSTIC STRIP TEST SCH ×3 (11:34→21:08)
[2019-03-05] MEDS: INSULIN LISPRO 100 UNITS/ML SUBCUT SCH ×3 (11:35→21:00)
[2019-03-05] MEDS ORDERED: CITALOPRAM HYDROBROMIDE 20 MG PO SCH (13:00)
[2019-03-05] MEDS ORDERED: MEDICATION NOT ON FORMULARY EA (Ferrous Sulfate 325 MG) PO SCH (13:00)
[2019-03-05] MEDS ORDERED: MEDICATION NOT ON FORMULARY EA (Colchicine 0.6 MG) PO SCH (13:00)
[2019-03-05] MEDS: IPRATROPIUM/ALBUTEROL 0.5-3(2.5)MG/3ML NEB NEB SCH ×2 (13:31→20:33)
[2019-03-05] MEDS: BUDESONIDE 0.5MG/2ML NEB HHN SCH (13:33)
[2019-03-05] MEDS: ALPRAZOLAM 0.5 MG TABLET PO PRN (13:50)
[2019-03-05] MEDS: SPIRONOLACTONE 25MG TABLET PO SCH (13:51)
[2019-03-05] MEDS: LISINOPRIL 20MG TABLET PO SCH (13:51)
[2019-03-05] MEDS: SILDENAFIL CITRATE 20MG TABLET PO SCH ×2 (13:52→17:24)
[2019-03-05] MEDS: AMBRISENTAN (LETAIRIS) 10 MG TABLET PO SCH (15:16)
[2019-03-05] MEDS: FERROUS SULFATE 325MG TABLET PO SCH (17:24)
[2019-03-05] MEDS: FUROSEMIDE 40MG/4ML VIAL IV SCH (17:25)
[2019-03-05] MEDS: CARVEDILOL 6.25 MG TABLET PO SCH (21:00)
[2019-03-05] MEDS ORDERED: EPOETIN ALFA 10000UNITS/ML VIAL SUBCUT SCH (21:00)
[2019-03-05 21:01] LABS: CREATINE KINASE 20 IU/L (26-192)
[2019-03-05 21:03] LABS: CREATINE KINASE MB FRACTION < 1.0 ng/mL (0.5-3.6)
[2019-03-05] MEDS: APIXABAN 2.5 MG TABLET PO SCH (21:21)
[2019-03-06] VITALS (12 sets, daily range): BP systolic 91–133; BP diastolic 42–66
[2019-03-06] MEDS: BUDESONIDE 0.5MG/2ML NEB HHN SCH ×3 (01:02→21:01)
[2019-03-06] MEDS: SODIUM CHLORIDE 0.9% INJ 3ML FLUSH IVF SCH ×3 (06:47→21:14)
[2019-03-06] MEDS: LEVOTHYROXINE SODIUM 50MCG TABLET PO SCH (06:47)
[2019-03-06] MEDS: BLOOD SUGAR DIAGNOSTIC STRIP TEST SCH ×4 (06:50→20:31)
[2019-03-06] MEDS: FUROSEMIDE 40MG/4ML VIAL IV SCH ×2 (06:52→17:15)
[2019-03-06] MEDS: INSULIN LISPRO 100 UNITS/ML SUBCUT SCH ×4 (07:20→20:31)
[2019-03-06] MEDS: IPRATROPIUM/ALBUTEROL 0.5-3(2.5)MG/3ML NEB NEB SCH ×4 (08:18→20:57)
[2019-03-06] MEDS: SILDENAFIL CITRATE 20MG TABLET PO SCH ×3 (08:57→17:00)
[2019-03-06] MEDS: SPIRONOLACTONE 25MG TABLET PO SCH (08:57)
[2019-03-06] MEDS: APIXABAN 2.5 MG TABLET PO SCH ×2 (08:58→20:34)
[2019-03-06] MEDS: FERROUS SULFATE 325MG TABLET PO SCH ×3 (08:58→17:15)
[2019-03-06] MEDS: CITALOPRAM HYDROBROMIDE 10MG TABLET PO SCH (08:58)
[2019-03-06] MEDS: ATORVASTATIN CALCIUM 20MG TABLET PO SCH (08:58)
[2019-03-06] MEDS: CARVEDILOL 6.25 MG TABLET PO SCH ×2 (08:59→20:39)
[2019-03-06] MEDS: LISINOPRIL 20MG TABLET PO SCH (09:00)
[2019-03-06] MEDS: AMBRISENTAN (LETAIRIS) 10 MG TABLET PO SCH (09:00)
[2019-03-06] MEDS ORDERED: NON FORMULARY PATIENT HOME MED PO SCH ×2 (09:00)
[2019-03-06] MEDS: COLCHICINE 0.6MG TABLET PO SCH (09:00)
[2019-03-06] MEDS: HYDROCODONE/ACETAMINOPHEN 5/325MG TABLET PO PRN (09:18)
[2019-03-06 10:58] LABS: BASOPHILS % 0.1 % (0.0-2.0); HEMATOCRIT. 28.8 % (36.0-48.0); LYMPHOCYTES % 7.7 % (20.0-50.0); MEAN PLATELET VOLUME 8.5 fl (7.4-10.4); MONOCYTES % 10.5 % (2.0-8.0); NEUTROPHILS % 80.7 % (40.0-76.0); PLATELET 255 x1000/uL (130-400); RED BLOOD CELL COUNT 3.47 mill/uL (4.2-5.4); RED CELL DISTRIBUTION WIDTH 19.7 % (11.6-14.6)
[2019-03-06 11:10] LABS: T4 FREE 1.23 ng/dL (0.76-1.46)
[2019-03-06] MEDS: ALPRAZOLAM 0.5 MG TABLET PO PRN (20:46)
[2019-03-07] VITALS (8 sets, daily range): BP systolic 93–124; BP diastolic 44–66
[2019-03-07] MEDS: SODIUM CHLORIDE 0.9% INJ 3ML FLUSH IVF SCH (05:10)
[2019-03-07] MEDS: HYDROCODONE/ACETAMINOPHEN 5/325MG TABLET PO PRN (05:37)
[2019-03-07] MEDS: BLOOD SUGAR DIAGNOSTIC STRIP TEST SCH (05:55)
[2019-03-07] MEDS: LEVOTHYROXINE SODIUM 50MCG TABLET PO SCH (05:55)
[2019-03-07] MEDS: INSULIN LISPRO 100 UNITS/ML SUBCUT SCH (05:56)
[2019-03-07] MEDS: FUROSEMIDE 40MG/4ML VIAL IV SCH (08:57)
[2019-03-07] MEDS: FERROUS SULFATE 325MG TABLET PO SCH (08:57)
[2019-03-07] MEDS: LISINOPRIL 20MG TABLET PO SCH (08:58)
[2019-03-07] MEDS: APIXABAN 2.5 MG TABLET PO SCH (08:58)
[2019-03-07] MEDS: SPIRONOLACTONE 25MG TABLET PO SCH (08:58)
[2019-03-07] MEDS: COLCHICINE 0.6MG TABLET PO SCH (08:58)
[2019-03-07] MEDS: SILDENAFIL CITRATE 20MG TABLET PO SCH (08:58)
[2019-03-07] MEDS: CARVEDILOL 6.25 MG TABLET PO SCH (08:58)
[2019-03-07] MEDS: ATORVASTATIN CALCIUM 20MG TABLET PO SCH (08:58)
[2019-03-07] MEDS: CITALOPRAM HYDROBROMIDE 10MG TABLET PO SCH (08:58)
[2019-03-07] MEDS: AMBRISENTAN (LETAIRIS) 10 MG TABLET PO SCH (09:00)
[2019-03-07] MEDS: IPRATROPIUM/ALBUTEROL 0.5-3(2.5)MG/3ML NEB NEB SCH (09:04)
[2019-03-07] MEDS: BUDESONIDE 0.5MG/2ML NEB HHN SCH (09:04)
== END 2019-03-07 12:37 | disposition home or self-care (01) | DRG 291 ==
LOC: ER 20:14 → 3WST 22:14 → EDBEDREQTM 22:24 → EDBEDREQ 22:24 → ENRESERV 22:33
PROVIDERS: ADMIT Family Medicine; ATTEND Family Medicine
PROC: 5A09457 Assistance with Respiratory Ventilation, 24-96 Consecutive Hours, Continuous Positive Airway Pressure (ICD-10-PCS; principal; 2019-03-04)
PROC: 5A09357 Assistance with Respiratory Ventilation, Less than 24 Consecutive Hours, Continuous Positive Airway Pressure (ICD-10-PCS; 2019-03-06)
PROC: 5A09357 Assistance with Respiratory Ventilation, Less than 24 Consecutive Hours, Continuous Positive Airway Pressure (ICD-10-PCS; 2019-03-07)
DX: I13.0 Hypertensive heart and chronic kidney disease with heart failure and stage 1 through stage 4 chronic kidney disease, or unspecified chronic kidney disease (principal); I50.33 Acute on chronic diastolic (congestive) heart failure; J96.21 Acute and chronic respiratory failure with hypoxia; J44.1 Chronic obstructive pulmonary disease with (acute) exacerbation; I48.91 Unspecified atrial fibrillation; E78.00 Pure hypercholesterolemia, unspecified; D64.9 Anemia, unspecified; E03.9 Hypothyroidism, unspecified; E05.90 Thyrotoxicosis, unspecified without thyrotoxic crisis or storm; E11.22 Type 2 diabetes mellitus with diabetic chronic kidney disease; E66.01 Morbid (severe) obesity due to excess calories; K44.9 Diaphragmatic hernia without obstruction or gangrene; F41.9 Anxiety disorder, unspecified; G47.33 Obstructive sleep apnea (adult) (pediatric); I07.1 Rheumatic tricuspid insufficiency; I27.20 Pulmonary hypertension, unspecified; M06.9 Rheumatoid arthritis, unspecified; M10.9 Gout, unspecified; M17.11 Unilateral primary osteoarthritis, right knee; N18.9 Chronic kidney disease, unspecified; Z79.01 Long term (current) use of anticoagulants; Z79.899 Other long term (current) drug therapy; Z82.49 Family history of ischemic heart disease and other diseases of the circulatory system; Z83.3 Family history of diabetes mellitus; Z87.19 Personal history of other diseases of the digestive system; Z99.81 Dependence on supplemental oxygen; Z68.36 Body mass index [BMI] 36.0-36.9, adult
CPT/HCPCS: 36415; 36600; 71045; 73562; 80048; 82375; 82550; 82553; 82805; 82962; 83880; 84439; 84443; 84481; 84484; 93005; 94640; 94660; 96374; 99291; J0885; J1650; J1815; J1885; J1940; J3490; J7611; J7620; J7626

== ENCOUNTER 2019-05-09 09:03 | Inpatient (IN) | payer MEDICARE, MEDICAID ==
[~2019-05-09] VITALS: Ht 160 cm; Wt 109.0 kg
[~2019-05-09 09:03] MED LIST changes: -ALPR0.5T PO; +AMBR10TA3 MT; +ATOR20TA65 MT; -COLC0.6C3 PO; -COR6 PO; +FERR325T6 MT; -FERR325T6 PO; +FURO40TA5 MT; +LEVO500T2 MT; -LEVO50TA8 PO; -LIDOCAINE HCL/PF 1% 2ML VIAL ONE; -LISI-604 PO; +MIDO5TAB MT; +PANT40TA4 MT; -SPIR25TA6 PO
[2019-05-09] MEDS ORDERED: METHYLPREDNISOLONE SOD SUCC 125 MG/2 ML VIAL IV STA (09:10)
[2019-05-09] MEDS ORDERED: FUROSEMIDE 40MG/4ML VIAL IV ONE (09:15)
[2019-05-09] MEDS ORDERED: ASPIRIN 81MG TABLET PO ONE (09:15)
[2019-05-09] MEDS ORDERED: LEVOFLOXACIN 750MG PREMIX 150 ML IV ONE (09:15)
[2019-05-09] MEDS ORDERED: IPRATROPIUM/ALBUTEROL 0.5-3(2.5)MG/3ML NEB HHN ONE (09:15)
[2019-05-09 09:56] LABS: BASOPHILS % 0.3 % (0.0-2.0); HEMATOCRIT. 29.2 % (36.0-48.0); HEMOGLOBIN. 9.1 g/dL (12.0-16.0); MEAN CORPUSCULAR HEMOGLOBIN 25.9 pg (28.0-32.0); MEAN PLATELET VOLUME 7.5 fl (7.4-10.4); MONOCYTES % 10.2 % (2.0-8.0); NEUTROPHILS % 80.5 % (40.0-76.0); PLATELET 263 x1000/uL (130-400); RED BLOOD CELL COUNT 3.52 mill/uL (4.2-5.4); RED CELL DISTRIBUTION WIDTH 20.5 % (11.6-14.6)
[2019-05-09 10:00] LABS: CHLORIDE 104 mEq/L (98-107)
[2019-05-09 10:02] LABS: INR 1.2; PARTIAL THROMBOPLASTIN TIME 28.2 sec (23.4-31.0); PROTHROMBIN TIME 12.1 sec (9.6-11.0)
[2019-05-09 10:03] LABS: ETHANOL BLOOD < 10 mg/dL
[2019-05-09 10:16] LABS: BG BILEVEL POS AIRWAY PRESSURE 15/5; BG DEOXYHEMOGLOBIN 0.9 % (0.0-5.0); BG HCO3 ACT 27.5 mmol/L (22.0-26.0); BG METHEMOGLOBIN 0.2 % (0.0-1.5); BG OXYGEN SATURATION 99.1 % (92.0-98.5); BG OXYHEMOGLOBIN 97.9 % (94.0-97.0); BG PCO2 47.5 mmHg (35.0-45.0); BG PH 7.381 (7.350-7.450); BG PO2 210.9 mmHg (75.0-100.0); BG SAMPLE SITE RIGHT RADIAL; BG TOTAL HEMOGLOBIN 9.7 g/dL (12.0-18.0); BG VENT MODE MASK - BIPAP; BG VENT RATE 18 set
[2019-05-09] MEDS ORDERED: LORAZEPAM 2MG/ML CPJ IV ONE (11:15)
[2019-05-09] MEDS: SILDENAFIL CITRATE 20MG TABLET PO SCH ×2 (14:00→22:57)
[2019-05-09 16:00] VITALS: BP 154/80
[2019-05-09 16:31] VITALS: BP 154/80
[2019-05-09] MEDS ORDERED: DEXTROSE 50% WATER 50ML SYRINGE IV PRN ×2 (17:00)
[2019-05-09] MEDS: BLOOD SUGAR DIAGNOSTIC STRIP TEST SCH ×2 (17:18→21:00)
[2019-05-09] MEDS: CITALOPRAM HYDROBROMIDE 10MG TABLET PO SCH (17:55)
[2019-05-09] MEDS: ALPRAZOLAM 0.5 MG TABLET PO PRN (17:55)
[2019-05-09] MEDS: FUROSEMIDE 40MG/4ML VIAL IVP SCH (17:56)
[2019-05-09 18:00] VITALS: BP 170/91
[2019-05-09] MEDS: INSULIN LISPRO 100 UNITS/ML SUBCUT SCH ×2 (18:00→22:16)
[2019-05-09 20:00] VITALS: BP 155/80
[2019-05-09 22:00] VITALS: BP 137/82
[2019-05-09] MEDS: APIXABAN 5 MG TABLET PO SCH (22:01)
[2019-05-09] MEDS: METHYLPREDNISOLONE SOD SUCC 40 MG/ML VIAL IV SCH (22:02)
[2019-05-09] MEDS: ATORVASTATIN CALCIUM 20MG TABLET PO SCH (22:02)
[2019-05-09] MEDS: IPRATROPIUM/ALBUTEROL 0.5-3(2.5)MG/3ML NEB HHN SCH (22:32)
[2019-05-09] MEDS: BUDESONIDE 0.5MG/2ML NEB HHN SCH (22:39)
[2019-05-09] MEDS: INSULIN GLARGINE UD 100 UNITS/ML SYR SUBCUT SCH (23:07)
[2019-05-10] VITALS (14 sets, daily range): BP systolic 116–150; BP diastolic 38–87
[2019-05-10] MEDS: IPRATROPIUM/ALBUTEROL 0.5-3(2.5)MG/3ML NEB HHN SCH ×6 (02:25→20:15)
[2019-05-10] MEDS: ALPRAZOLAM 0.5 MG TABLET PO PRN (02:38)
[2019-05-10] MEDS: SILDENAFIL CITRATE 20MG TABLET PO SCH ×3 (06:41→21:37)
[2019-05-10 07:22] LABS: HEMATOCRIT. 27.6 % (36.0-48.0); MEAN CORPUSCULAR HEMOGLOBIN 26.2 pg (28.0-32.0); MEAN CORPUSCULAR VOLUME 80.3 fL (81.0-99.0); MEAN PLATELET VOLUME 7.9 fl (7.4-10.4); PLATELET 278 x1000/uL (130-400); RED BLOOD CELL COUNT 3.44 mill/uL (4.2-5.4); RED CELL DISTRIBUTION WIDTH 19.9 % (11.6-14.6)
[2019-05-10] MEDS: BLOOD SUGAR DIAGNOSTIC STRIP TEST SCH ×4 (07:30→21:40)
[2019-05-10] MEDS ORDERED: LEVOTHYROXINE SODIUM 50MCG TABLET PO SCH (07:30)
[2019-05-10] MEDS: BUDESONIDE 0.5MG/2ML NEB HHN SCH ×2 (07:40→20:16)
[2019-05-10 07:42] LABS: CHLORIDE 103 mEq/L (98-107)
[2019-05-10 07:57] LABS: PHOSPHORUS 3.1 mg/dL (2.5-4.9)
[2019-05-10 07:59] LABS: LDL CHOLESTEROL 40 mg/dL (5-100)
[2019-05-10 08:00] LABS: HDL CHOLESTEROL 46 mg/dL (40-59)
[2019-05-10] MEDS ORDERED: NON FORMULARY PATIENT HOME MED XX SCH (08:45)
[2019-05-10] MEDS ORDERED: APIXABAN 2.5 MG TABLET PO SCH (09:00)
[2019-05-10] MEDS ORDERED: SILDENAFIL CITRATE 20MG TABLET PO SCH (09:00)
[2019-05-10] MEDS ORDERED: CITALOPRAM HYDROBROMIDE 10MG TABLET PO SCH (09:00)
[2019-05-10] MEDS ORDERED: ATORVASTATIN CALCIUM 20MG TABLET PO SCH (09:00)
[2019-05-10] MEDS: FUROSEMIDE 40MG/4ML VIAL IVP SCH (09:02)
[2019-05-10] MEDS: APIXABAN 5 MG TABLET PO SCH (09:03)
[2019-05-10] MEDS: METHYLPREDNISOLONE SOD SUCC 40 MG/ML VIAL IV SCH (09:03)
[2019-05-10] MEDS ORDERED: BENZONATATE 100MG CAPSULE PO PRN (09:15)
[2019-05-10] MEDS: CITALOPRAM HYDROBROMIDE 10MG TABLET PO SCH (09:26)
[2019-05-10] MEDS: PANTOPRAZOLE 40MG DR TABLET PO SCH (09:27)
[2019-05-10] MEDS: INSULIN LISPRO 100 UNITS/ML SUBCUT SCH ×4 (09:28→21:42)
[2019-05-10 09:58] LABS: BG BASE EXCESS 3.2 mmol/L (-2.0-2.0); BG CARBOXYHEMOGLOBIN 0.5 % (0.5-1.5); BG DEOXYHEMOGLOBIN 4.1 % (0.0-5.0); BG FRACTION INSPIRED OXYGEN 36; BG HCO3 ACT 28.9 mmol/L (22.0-26.0); BG METHEMOGLOBIN 0.2 % (0.0-1.5); BG OXYGEN SATURATION 95.9 % (92.0-98.5); BG OXYHEMOGLOBIN 95.2 % (94.0-97.0); BG PCO2 49.7 mmHg (35.0-45.0); BG PH 7.383 (7.350-7.450); BG PO2 86.8 mmHg (75.0-100.0); BG SAMPLE SITE RIGHT RADIAL; BG TOTAL HEMOGLOBIN 9.9 g/dL (12.0-18.0); BG VENT MODE NASAL CANNULA
[2019-05-10 10:07] LABS: TOTAL IRON BINDING CAPACITY 267 ug/dL (250-450)
[2019-05-10] MEDS: GUAIFENESIN 600MG ER TABLET PO SCH ×2 (12:15→21:38)
[2019-05-10] MEDS: POTASSIUM CHLORIDE 8 MEQ TABLET.SA PO SCH (12:16)
[2019-05-10] MEDS: MIDODRINE HCL 2.5MG TABLET PO SCH ×2 (13:32→18:24)
[2019-05-10 14:01] LABS: PLATELET ESTIMATE NORMAL
[2019-05-10] MEDS: APIXABAN 2.5 MG TABLET PO SCH (18:24)
[2019-05-10] MEDS: ONDANSETRON HCL 4MG/2ML INJ IV PRN (18:25)
[2019-05-10] MEDS: MONTELUKAST SODIUM 10MG TABLET PO SCH (18:25)
[2019-05-10] MEDS: ATORVASTATIN CALCIUM 20MG TABLET PO SCH (21:37)
[2019-05-10] MEDS: EPOETIN ALFA 10000UNITS/ML VIAL SUBCUT SCH (21:39)
[2019-05-10] MEDS: INSULIN GLARGINE UD 100 UNITS/ML SYR SUBCUT SCH (22:51)
[2019-05-11] VITALS (9 sets, daily range): BP systolic 103–147; BP diastolic 43–72
[2019-05-11] MEDS: IPRATROPIUM/ALBUTEROL 0.5-3(2.5)MG/3ML NEB HHN SCH ×5 (00:04→20:09)
[2019-05-11] MEDS: INSULIN LISPRO 100 UNITS/ML SUBCUT SCH ×4 (08:00→21:40)
[2019-05-11] MEDS: BLOOD SUGAR DIAGNOSTIC STRIP TEST SCH ×4 (08:16→21:40)
[2019-05-11] MEDS ORDERED: PREDNISONE 20MG TABLET PO SCH (09:00)
[2019-05-11] MEDS ORDERED: FUROSEMIDE 40MG/4ML VIAL IVP SCH (09:00)
[2019-05-11 09:18] LABS: CHLORIDE 104 mEq/L (98-107)
[2019-05-11 09:35] LABS: HEMOGLOBIN. 8.4 g/dL (12.0-16.0); MEAN CORPUSCULAR HEMOGLOBIN 25.7 pg (28.0-32.0); MEAN CORPUSCULAR VOLUME 82.3 fL (81.0-99.0); MEAN PLATELET VOLUME 8.1 fl (7.4-10.4); PLATELET 295 x1000/uL (130-400); RED BLOOD CELL COUNT 3.28 mill/uL (4.2-5.4); RED CELL DISTRIBUTION WIDTH 20.3 % (11.6-14.6)
[2019-05-11] MEDS: POTASSIUM CHLORIDE 8 MEQ TABLET.SA PO SCH (09:47)
[2019-05-11] MEDS: GUAIFENESIN 600MG ER TABLET PO SCH ×2 (09:47→21:39)
[2019-05-11] MEDS: MIDODRINE HCL 2.5MG TABLET PO SCH ×3 (09:48→18:42)
[2019-05-11] MEDS: APIXABAN 2.5 MG TABLET PO SCH ×2 (09:48→18:42)
[2019-05-11] MEDS: CITALOPRAM HYDROBROMIDE 10MG TABLET PO SCH (09:48)
[2019-05-11] MEDS: PANTOPRAZOLE 40MG DR TABLET PO SCH (09:51)
[2019-05-11] MEDS: SPIRONOLACTONE 25MG TABLET PO SCH (10:00)
[2019-05-11] MEDS: SILDENAFIL CITRATE 20MG TABLET PO SCH ×2 (12:23→21:38)
[2019-05-11] MEDS: ONDANSETRON HCL 4MG/2ML INJ IV PRN ×2 (12:27→18:43)
[2019-05-11] MEDS: ACETAMINOPHEN 325MG TABLET PO PRN (14:58)
[2019-05-11 17:24] LABS: PLATELET ESTIMATE NORMAL
[2019-05-11] MEDS: MONTELUKAST SODIUM 10MG TABLET PO SCH (18:39)
[2019-05-11] MEDS: BUDESONIDE 0.5MG/2ML NEB HHN SCH (20:10)
[2019-05-11] MEDS: ATORVASTATIN CALCIUM 20MG TABLET PO SCH (21:39)
[2019-05-12] VITALS (13 sets, daily range): BP systolic 87–146; BP diastolic 32–65
[2019-05-12] MEDS: IPRATROPIUM/ALBUTEROL 0.5-3(2.5)MG/3ML NEB HHN SCH ×6 (00:29→20:19)
[2019-05-12] MEDS: INSULIN GLARGINE UD 100 UNITS/ML SYR SUBCUT SCH ×2 (01:09→22:03)
[2019-05-12 05:10] LABS: HEMATOCRIT. 27.1 % (36.0-48.0); HEMOGLOBIN. 8.6 g/dL (12.0-16.0); MEAN CORPUSCULAR HEMOGLOBIN 25.9 pg (28.0-32.0); MEAN CORPUSCULAR VOLUME 81.8 fL (81.0-99.0); MEAN PLATELET VOLUME 7.9 fl (7.4-10.4); PLATELET 291 x1000/uL (130-400); RED BLOOD CELL COUNT 3.31 mill/uL (4.2-5.4); RED CELL DISTRIBUTION WIDTH 19.8 % (11.6-14.6)
[2019-05-12] MEDS: SILDENAFIL CITRATE 20MG TABLET PO SCH ×3 (06:16→21:22)
[2019-05-12] MEDS: BLOOD SUGAR DIAGNOSTIC STRIP TEST SCH ×4 (07:58→21:52)
[2019-05-12] MEDS: BUDESONIDE 0.5MG/2ML NEB HHN SCH ×2 (09:06→20:19)
[2019-05-12] MEDS: PREDNISONE 20MG TABLET PO SCH (09:07)
[2019-05-12] MEDS: CITALOPRAM HYDROBROMIDE 10MG TABLET PO SCH (09:07)
[2019-05-12] MEDS: APIXABAN 2.5 MG TABLET PO SCH ×2 (09:08→17:30)
[2019-05-12] MEDS: GUAIFENESIN 600MG ER TABLET PO SCH ×2 (09:08→21:22)
[2019-05-12] MEDS: MIDODRINE HCL 2.5MG TABLET PO SCH ×3 (09:08→17:31)
[2019-05-12] MEDS: PANTOPRAZOLE 40MG DR TABLET PO SCH (09:08)
[2019-05-12] MEDS: SPIRONOLACTONE 25MG TABLET PO SCH (09:08)
[2019-05-12] MEDS: ACETAMINOPHEN 325MG TABLET PO PRN ×2 (09:09→21:35)
[2019-05-12] MEDS: INSULIN LISPRO 100 UNITS/ML SUBCUT SCH ×4 (09:11→21:52)
[2019-05-12 09:59] LABS: PLATELET ESTIMATE NORMAL
[2019-05-12] MEDS: ONDANSETRON HCL 4MG/2ML INJ IV PRN (12:14)
[2019-05-12 13:23] LABS: CLARITY URINE CLEAR (CLEAR); COLOR URINE YELLOW (YELLOW); KETONES URINE NEGATIVE (NEGATIVE); LEUKOCYTE ESTERASE URINE NEGATIVE (NEGATIVE); NITRITE URINE NEGATIVE (NEGATIVE); OCCULT BLOOD URINE NEGATIVE (NEGATIVE); PH URINE 6.5 (4.5-8.0); PROTEIN URINE NEGATIVE (NEGATIVE); SPECIFIC GRAVITY URINE 1.013 (1.005-1.030); UROBILINOGEN URINE 0.2 E.U./dL (0.2-1.0)
[2019-05-12] MEDS: MONTELUKAST SODIUM 10MG TABLET PO SCH (17:30)
[2019-05-12] MEDS: ATORVASTATIN CALCIUM 20MG TABLET PO SCH (21:22)
[2019-05-12] MEDS: EPOETIN ALFA 10000UNITS/ML VIAL SUBCUT SCH (22:02)
[2019-05-13] VITALS (12 sets, daily range): BP systolic 107–136; BP diastolic 50–71
[2019-05-13] MEDS: IPRATROPIUM/ALBUTEROL 0.5-3(2.5)MG/3ML NEB HHN SCH ×4 (00:36→12:34)
[2019-05-13 06:35] LABS: BASOPHILS % 0.1 % (0.0-2.0); EOSINOPHILS % 0.1 % (0.0-5.0); HEMATOCRIT. 27.5 % (36.0-48.0); HEMOGLOBIN. 8.6 g/dL (12.0-16.0); LYMPHOCYTES % 12.8 % (20.0-50.0); MEAN CORPUSCULAR HEMOGLOBIN 25.7 pg (28.0-32.0); MEAN CORPUSCULAR VOLUME 82.1 fL (81.0-99.0); MEAN PLATELET VOLUME 7.9 fl (7.4-10.4); MONOCYTES % 13.2 % (2.0-8.0); NEUTROPHILS % 73.8 % (40.0-76.0); PLATELET 287 x1000/uL (130-400); RED BLOOD CELL COUNT 3.36 mill/uL (4.2-5.4); RED CELL DISTRIBUTION WIDTH 19.6 % (11.6-14.6)
[2019-05-13 06:46] LABS: CHLORIDE 104 mEq/L (98-107)
[2019-05-13] MEDS: SILDENAFIL CITRATE 20MG TABLET PO SCH ×2 (06:49→13:29)
[2019-05-13] MEDS: BLOOD SUGAR DIAGNOSTIC STRIP TEST SCH ×2 (07:30→13:22)
[2019-05-13] MEDS: INSULIN LISPRO 100 UNITS/ML SUBCUT SCH ×2 (08:00→13:00)
[2019-05-13] MEDS: GUAIFENESIN 600MG ER TABLET PO SCH (08:51)
[2019-05-13] MEDS: APIXABAN 2.5 MG TABLET PO SCH (08:52)
[2019-05-13] MEDS: ONDANSETRON HCL 4MG/2ML INJ IV PRN (08:52)
[2019-05-13] MEDS: SPIRONOLACTONE 25MG TABLET PO SCH (08:52)
[2019-05-13] MEDS: CITALOPRAM HYDROBROMIDE 10MG TABLET PO SCH (08:52)
[2019-05-13] MEDS: PANTOPRAZOLE 40MG DR TABLET PO SCH (08:52)
[2019-05-13] MEDS: MIDODRINE HCL 2.5MG TABLET PO SCH ×2 (08:52→13:00)
[2019-05-13] MEDS: PREDNISONE 20MG TABLET PO SCH (08:52)
[2019-05-13] MEDS ORDERED: ONDA4TAB5 MT (09:06)
[2019-05-13] MEDS ORDERED: PRED10TA MT (09:06)
[2019-05-13] MEDS ORDERED: PRED10TA23 MT (09:06)
[2019-05-13] MEDS ORDERED: PANT40TA4 MT (09:06)
[2019-05-13] MEDS ORDERED: MIDO2.5T MT (09:06)
== END 2019-05-13 14:35 | disposition home health service (06) | DRG 291 ==
LOC: ER 09:03 → 5EST 12:12 → EDBEDREQSVC 12:16 → EDBEDREQ 12:16 → ENRESERV 14:28
PROVIDERS: ADMIT Internal Medicine Geriatric Medicine; ATTEND Internal Medicine Nephrology
PROC: 5A09357 Assistance with Respiratory Ventilation, Less than 24 Consecutive Hours, Continuous Positive Airway Pressure (ICD-10-PCS; principal; 2019-05-09)
PROC: 5A09357 Assistance with Respiratory Ventilation, Less than 24 Consecutive Hours, Continuous Positive Airway Pressure (ICD-10-PCS; 2019-05-10)
PROC: 5A09357 Assistance with Respiratory Ventilation, Less than 24 Consecutive Hours, Continuous Positive Airway Pressure (ICD-10-PCS; 2019-05-12)
PROC: 5A09357 Assistance with Respiratory Ventilation, Less than 24 Consecutive Hours, Continuous Positive Airway Pressure (ICD-10-PCS; 2019-05-13)
DX: I13.0 Hypertensive heart and chronic kidney disease with heart failure and stage 1 through stage 4 chronic kidney disease, or unspecified chronic kidney disease (principal); J96.20 Acute and chronic respiratory failure, unspecified whether with hypoxia or hypercapnia; I50.43 Acute on chronic combined systolic (congestive) and diastolic (congestive) heart failure; I48.20 Chronic atrial fibrillation, unspecified; E46 Unspecified protein-calorie malnutrition; N17.9 Acute kidney failure, unspecified; Z68.41 Body mass index [BMI] 40.0-44.9, adult; J44.1 Chronic obstructive pulmonary disease with (acute) exacerbation; D68.59 Other primary thrombophilia; E66.01 Morbid (severe) obesity due to excess calories; D63.8 Anemia in other chronic diseases classified elsewhere; E11.22 Type 2 diabetes mellitus with diabetic chronic kidney disease; N18.3 Chronic kidney disease, stage 3 (moderate); M19.90 Unspecified osteoarthritis, unspecified site; K57.90 Diverticulosis of intestine, part unspecified, without perforation or abscess without bleeding; I87.8 Other specified disorders of veins; I87.2 Venous insufficiency (chronic) (peripheral); M10.9 Gout, unspecified; I07.1 Rheumatic tricuspid insufficiency; I27.29 Other secondary pulmonary hypertension; G47.33 Obstructive sleep apnea (adult) (pediatric); F32.9 Major depressive disorder, single episode, unspecified; E78.5 Hyperlipidemia, unspecified; F41.1 Generalized anxiety disorder; E05.90 Thyrotoxicosis, unspecified without thyrotoxic crisis or storm; G89.4 Chronic pain syndrome; I48.0 Paroxysmal atrial fibrillation; T38.0X5A Adverse effect of glucocorticoids and synthetic analogues, initial encounter; Y92.238 Other place in hospital as the place of occurrence of the external cause; Z87.891 Personal history of nicotine dependence; Z99.81 Dependence on supplemental oxygen; Z79.01 Long term (current) use of anticoagulants; Z71.3 Dietary counseling and surveillance
CPT/HCPCS: 36415; 36600; 71045; 80048; 80061; 80320; 81003; 82375; 82728; 82805; 82962; 83540; 83550; 83605; 83735; 83880; 84100; 84443; 84484; 87077; 87186; 93005; 93970; 94640; 94660; 97110; 97116; 97162; 97530; 99291; J0885; J1815; J1940; J1956; J2060; J2405; J2920; J2930; J7512; J7620; J7626; G0480